=== PATIENT | female | born 1965 | race Two or more races ===

== ENCOUNTER 2018-02-19 19:33 | Emergency (ER) | payer OTHER ==
[~2018-02-19] VITALS: Ht 149.9 cm; Wt 59.1 kg
[2018-02-19 20:31] LABS: MICROSCOPIC INDICATED
[2018-02-19 20:36] LABS: CULTURE INDICATED? YES
[2018-02-19 20:55] LABS: BASOPHILS # (AUTO) 0.04 x10^3/uL (0-0.1); BASOPHILS % (AUTO) 0 % (0-1); EOSINOPHILS # (AUTO) 0.59 x10^3/uL (0-0.4); EOSINOPHILS % (AUTO) 6 % (1-7); LYMPHOCYTES # (AUTO) 2.52 x10^3/uL (1-3.4); LYMPHOCYTES % (AUTO) 26 % (22-44); MD NO; MEAN CORPUSCULAR HEMOGLOBIN 28.5 pg (27.0-34.8); MEAN CORPUSCULAR HGB CONC 33.2 g/dL (32.4-35.8); MEAN CORPUSCULAR VOLUME 85.8 fL (80-100); MEAN PLATELET VOLUME 8.2 fL (7.4-10.4); MONOCYTES # (AUTO) 0.58 x10^3/uL (0.2-0.8); MONOCYTES % (AUTO) 6 % (2-9); NEUTROPHILS # (AUTO) 5.93 x10^3/uL (1.8-6.8); NEUTROPHILS % (AUTO) 61 % (42-75); PLATELET COUNT 467 x10^3/uL (130-400); RED CELL DISTRIBUTION WIDTH 14.4 % (9.6-15.2)
[2018-02-19 21:05] LABS: ALBUMIN 3.7 g/dL (3.4-5.0); ANION GAP 10 mmol/L (5-15); CALCIUM 8.6 mg/dL (8.5-10.1); CHLORIDE 104 mmol/L (98-107)
[2018-02-19 21:10] LABS: ALANINE AMINOTRANSFERASE 27 U/L (12-78); ALKALINE PHOSPHATASE 80 U/L (45-117); BILIRUBIN,TOTAL 0.5 mg/dL (0.2-1.0); CREATININE 0.82 mg/dL (0.55-1.02); TOTAL PROTEIN 7.9 g/dL (6.4-8.2)
[2018-02-19] MEDS ORDERED: METF500T4 PO (21:58)
[2018-02-19] MEDS ORDERED: KETOROLAC 30 MG/1 ML IM ONE (22:30)
[2018-02-19] MEDS ORDERED: TAMSULOSIN 0.4 MG CAP.ER.24H PO ONE (22:30)
[2018-02-19] MEDS ORDERED: KETOROLAC 30 MG/1 ML ONE (22:33)
[2018-02-19] MEDS ORDERED: TAMSULOSIN 0.4 MG CAP.ER.24H ONE (22:37)
[2018-02-19 22:45] VITALS: BP 141/83
== END 2018-02-19 23:30 | disposition home or self-care (01) ==
LOC: ED 22:52
DX: N20.0 Calculus of kidney (principal); Z90.49 Acquired absence of other specified parts of digestive tract
CPT/HCPCS: 36415; 74176; 80053; 81001; 85025; 87086; 96372; 99285; J1885